=== PATIENT | female | born 1985 | race Caucasian/White ===

== ENCOUNTER 2020-03-26 13:25 | Emergency (ER) | payer MEDICAID ==
[~2020-03-26] VITALS: Ht 170.2 cm; Wt 68.0 kg
[2020-03-26 13:40] VITALS: BP 114/65
--- NOTE | 2020-03-26 13:42 | NUR ---
PT AMB TO BED 12.
--- NOTE | 2020-03-26 13:55 | NUR ---
PT C/O LOWER ABDOMINAL PAIN WITH PRESSURE SENSATION FOR ONE WEEK. REPORTS BEING W/O KNOWING LMP. PT HAS NOT SEEN BY OB DR YET. DENIES VAGINAL BLEEDING BUT REPORTS HAVING THICK VAGINAL DISCHARGE FOR ONE WEEK. A0 UNKNOWN DEDE. PMH: DENIES
[2020-03-26 14:21] LABS: BASOPHILS % (AUTO) 0.3 % (0.0-2.0); EOSINOPHILS % (AUTO) 0.1 % (0.0-4.0); HEMATOCRIT 35.2 % (36-48); HEMOGLOBIN 11.6 g/dL (12.0-16.0); LYMPHOCYTES # (AUTO) 1.4 K/uL (2.5-16.5); LYMPHOCYTES % (AUTO) 10.8 % (20.5-51.1); MEAN CORPUSCULAR HEMOGLOBIN 28 pg (27-31); MEAN CORPUSCULAR HGB CONC 33 g/dL (33-37); MEAN CORPUSCULAR VOLUME 84.6 fL (80-94); MONOCYTES # (AUTO) 0.6 K/uL (0.8-1.0); MONOCYTES % (AUTO) 4.7 % (1.7-9.3); NEUTROPHILS # (AUTO) 10.5 K/uL (1.8-7.7); NEUTROPHILS % (AUTO) 84.1 % (42.2-75.2); PLATELET COUNT (AUTO) 352 K/uL (140-450); RED BLOOD CELL COUNT(AUTO) 4.16 MIL/uL (4.20-5.40); RED CELL DISTRIBUTION WIDTH 14.2 % (11.6-13.7); WHITE BLOOD COUNT (AUTO) 12.5 K/uL (4.8-10.8)
--- NOTE | 2020-03-26 15:21 | NUR ---
PT AMBULATES TO THE BATHROOM AND TRIES TO URINATE.
[2020-03-26 15:51] VITALS: BP 111/61
[2020-03-26 17:30] LABS: APPEARANCE,URINE HAZY (CLEAR); BILIRUBIN,URINE NEGATIVE (NEGATIVE); BLOOD, URINE NEGATIVE (NEGATIVE); COLOR,URINE ORANGE (YELLOW); LEUKOCYTE ESTERASE ,URINE 1+ (NEGATIVE); NITRITE, URINE NEGATIVE (NEGATIVE); UGLUCOSE NEGATIVE (NEGATIVE)
[2020-03-26 17:37] LABS: WBC,URINE 16-25 (MOD) /HPF (0-5)
[2020-03-26 17:38] LABS: YEAST,URINE Moderate /HPF (None Seen)
== END 2020-03-26 15:51 | disposition home or self-care (01) ==
LOC: MED 13:25
DX: O23.42 Unspecified infection of urinary tract in pregnancy, second trimester (principal); Z3A.24 24 weeks gestation of pregnancy
CPT/HCPCS: 36415; 76805; 81001; 84702; 85025; 87086; 99284

== ENCOUNTER 2020-07-16 20:44 | Observation (INO) | payer SELFPAY ==
[~2020-07-16] VITALS: Ht 170.2 cm; Wt 104.3 kg
[2020-07-16 22:00] VITALS: BP 110/70
== END 2020-07-16 21:25 | disposition home or self-care (01) ==
LOC: MFCC 20:44
PROVIDERS: ADMIT Obstetrics & Gynecology; ATTEND Obstetrics & Gynecology
DX: O62.9 Abnormality of forces of labor, unspecified (principal); O48.0 Post-term pregnancy; Z3A.40 40 weeks gestation of pregnancy
CPT/HCPCS: 81000; G0378